=== PATIENT | male | born 1995 | race Caucasian/White ===

== ENCOUNTER 2018-10-13 17:30 | Emergency (ER) | payer OTHER ==
[~2018-10-13 17:30] MED LIST: ISOVUE-370 76%-LOCM 1 ML ONE
[2018-10-13 18:37] LABS: #Basophils 0.1 thou/uL (0.0-0.2); #Eosinphils 0.1 thou/uL (0.0-0.7); #Lymphocytes 1.9 thou/uL (1.20-3.40); #Neutrophils 11.2 thou/uL (1.40-6.50); %Basophils 0.5 % (0.0-1.0); %Eosinophils 0.9 % (0.0-10.0); %Lymphocytes 13.5 % (21.0-51.0); %Monocytes 6.7 % (0.0-10.0); %Neutrophils 78.4 % (42.0-75.0); Hemoglobin 15.7 g/dL (14.0-18.0); Mean Corpuscular HGB CONC 34.6 g/dL (32.0-36.0); Mean Corpuscular Hemoglobin 30.7 pg (27.0-31.0); Mean Corpuscular Volume 88.9 fL (78.0-98.0); Platelet Count 281 thou/uL (130-400); RBC Distribution Width 11.1 % (11.5-14.5); Red Blood Cell (RBC) Count 5.12 mill/uL (4.70-6.10); White Blood Cell (WBC) Count 14.3 thou/uL (4.8-10.8)
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
[2018-10-13 18:55] LABS: ALT (SGPT) 14 U/L (8-55); AST (SGOT) 18 U/L (5-34); Albumin 5.2 g/dL (3.5-5.0); Alkaline Phosphatase 45 U/L (40-150); Anion Gap 14 mmol/L (10-20); BUN (Urea Nitrogen) 11 mg/dL (8.9-20.6); Bilirubin, Total 0.9 mg/dL (0.2-1.2); Calc. Creatinine Clearance 0 mL/min (70-130); Calcium 10.3 mg/dL (7.8-10.44); Carbon Dioxide 27 mmol/L (22-29); Chloride 102 mmol/L (98-107); Estimated GFR-MDRD 82; Globulin 2.9 g/dL (2.4-3.5); Glucose 97 mg/dL (70-105); Potassium 3.7 mmol/L (3.5-5.1); Protein, Total 8.1 g/dL (6.0-8.3); Sodium 139 mmol/L (136-145)
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
--- NOTE | 2018-10-13 19:49 | RAD ---
FOUR VIEWS OF THE RIGHT KNEE: 10/13/18 COMPARISON: None. HISTORY: Right knee pain. FINDINGS: Four views of the right knee shows no evidence of acute fracture or dislocation. No knee effusion is seen. No degenerative changes are present. IMPRESSION: Unremarkable exam. POS: CARMELITA
--- NOTE | 2018-10-13 19:56 | RAD ---
FOUR VIEWS OF THE LEFT KNEE: 10/13/18 HISTORY: Knee pain. FINDINGS: Four views of the left knee shows no evidence of acute fracture or dislocation. No degenerative trejo ges are seen. No soft tissue swelling is present. IMPRESSION: Unremarkable exam. POS: [id number]
--- NOTE | 2018-10-13 20:03 | RAD ---
THREE VIEWS LEFT HAND 10/13/18 COMPARISON: None. HISTORY: Pain in the proximal fifth digit. FINDINGS: Three views of the left hand shows no evidence of acute fracture or dislocation. No soft tissue swell ing is seen. No degenerative changes are present. IMPRESSION: Unremarkable exam. POS: C
[2018-10-13] MEDS ORDERED: Ketorolac Tromethamine 30 MG/ML VIAL ONE (20:58)
== END 2018-10-13 21:27 | disposition home or self-care (01) ==
LOC: ERS 17:30
DX: S30.1XXA Contusion of abdominal wall, initial encounter (principal); S80.212A Abrasion, left knee, initial encounter; S80.211A Abrasion, right knee, initial encounter; V44.6XXA Car passenger injured in collision with heavy transport vehicle or bus in traffic accident, initial encounter
CPT/HCPCS: 70450; 71260; 72125; 74177; 80053; 85025; 96374; J1885